=== PATIENT | male | born 1990 | race Caucasian/White ===

== ENCOUNTER 2019-08-23 11:16 | Emergency (ER) | payer MEDICARE, SELFPAY ==
[2019-08-23 11:28] VITALS: BP 158/113; PULSE 94; RESP 18; TEMP 36.7; O2SAT 96
== END 2019-08-23 11:35 ==
LOC: ER 11:43
PROVIDERS: Emergency Provider Physician Assistant
DX: Z53.21 Procedure and treatment not carried out due to patient leaving prior to being seen by health care provider (principal)

== ENCOUNTER 2020-03-18 12:25 | Emergency (ER) | payer MEDICARE, SELFPAY ==
[2020-03-18] VITALS (28 sets, daily range): BP systolic 165–192; BP diastolic 88–111; PULSE 90–166; RESP 15–34; TEMP 36.8; O2SAT 86–93
--- NOTE | 2020-03-18 13:00 | DI.RAD_ITS ---
EXAM: XR PORTABLE CHEST AP CLINICAL HISTORY: cough, chest pain, missed dialysis TECHNIQUE: 2D digital imaging was performed. COMPARISON: No exams were available for comparison FINDINGS: MEDIASTINUM: Normal. HEART: Within normal limits given the technique. PULMONARY VASCULATURE: Normal. LUNGS: Bilateral opacities are present. There are air bronchograms noted. PLEURAL SPACE: Blunting of the left costophrenic angle is seen suggesting small pleural effusion. No pneumothorax is present. BONE:Normal. OTHER FINDINGS:Normal. IMPRESSION: Bilateral airspace opacities with air bronchograms suspicious for pneumonia. DATA REPOSITORY: RADIATION DOSE DELIVERED:
--- NOTE | 2020-03-18 13:11 | W.ED.GENAD ---
Discharge Plan Disposition Patient Disposition: AGAINST MEDICAL ADVICE Condition: Serious Discharge Details Chief Complaint: GenMedical Clinical Impression: Multifocal pneumonia, Acute hyperkalemia, Left against medical advice Primary Care Provider: Cornelius Perez ED Provider: Isra Espinosa Home Meds and New Rx's Prescriptions: Continued acetaminophen 325 MG tablet 650 mg PO Q4H PRN PRNRF: 0 lisinopril 20 MG tablet 20 mg PO BID RF: 0 amlodipine 10 MG tablet 10 mg PO BID RF: 0 Renal Caps 1 CAP capsule 1 cap PO DAILY RF: 0 tacrolimus [Prograf] 1 MG capsule 1 mg PO BID RF: 0 calcium acetate(phosphat bind) [PhosLo] 667 MG capsule 667 mg PO TID RF: 0 minoxidil 10 mg Tablet 10 mg PO DAILY RF: 0 Discharge Instructions Instructions: Pneumonia (ED) Additional Instructions: As we discussed you have evidence of bilateral pneumonia as well as elevated life-threatening potassium. You have assume the risk of possible or permanent disability by leaving the hospital AGAINST MEDICAL ADVICE. Please return at any time for reevaluation. As noted, you underwent COVID-19 testing today which is pending at this time. Please continue to self quarantine. Medical Decision Making 30-year-old male with history of renal failure, last dialysis was on Friday, presents with day 4 of a cough with congestion, production of bloody sputum at times associated with generalized body ache. He arrives to the emergency department with elevated respiratory rate, borderline tachycardia of approximately 100, with room air oxygenation 85 to 86% that corrects with supplemental oxygen. This presentation is concerning for fluid overload, pneumonitis including Covid-19, & must exclude ACS. Chest x-ray reveals bibasilar airspace opacities, suggestive of pneumonia. Patient has a number of lab abnormalities including white blood cell count 2.7, hematocrit 25, platelets 284, sodium 122, potassium 6.9, BUN 88, creatinine 11.6, lactate 2.0. EKG did reveal peaked T waves. Patient was treated for hyperkalemia with insulin, glucose, calcium gluconate. COVID-19 nasopharyngeal testing was obtained. Blood cultures were ordered and the patient was given 1 g of ceftriaxone. Case [facility], Dr. Mayfield, and patient accepted in transfer. At approximately 3:30 PM the patient stated he wished to leave AGAINST MEDICAL ADVICE. He states he cannot handle being in the hospital and that he has arranged for dialysis to be performed this afternoon. He demonstrates decision-making capacity and is able to repeat back that he is at risk for or permanent disability from both hypoxia as well as hyperkalemia. He will be signed out AGAINST MEDICAL ADVICE. Lab Data Lab results reviewed: Yes I reviewed the patient's lab results. Labs: Laboratory Results - last 24 hr 03/18/20 03/18/20 03/18/20 13:22 13:22 13:22 WBC 2.71 L RBC 3.99 L Hgb 8.0 L Hct 25.6 L MCV 64.2 L MCH 20.1 L MCHC 31.3 L RDW 17.2 H Plt Count 284 MPV 9.5 Immature Gran % 0.0 Neutrophils % 61.0 Band Neutrophils % 27.0 Lymphocytes % 10.0 Monocytes % 1.0 Eosinophils % 1.0 Basophils % 0.0 Absolute Neutrophils 2.38 Absolute Lymphocytes 0.27 L Absolute Monocytes 0.03 L Absolute Eosinophils 0.03 Absolute Basophils 0.00 Differential Comment Manual differential RBC Morphology See below Polychromasia Present Hypochromasia 2+ Poikilocytosis 2+ Anisocytosis 2+ Microcytosis 2+ PT 12.5 H INR 1.2 H APTT 41.8 H Sodium 122 L* Potassium 6.9 H* Chloride 84 L Carbon Dioxide 28.2 Anion Gap 9.8 BUN 88 H* Creatinine 11.64 H* Estimated GFR/1.73 m2 5.10 Glucose 72 L Lactate Calcium 8.2 L Magnesium 2.1 Total Bilirubin 0.5 AST 46 H ALT 31 Alkaline Phosphatase 58 Troponin I < 0.05 Total Protein 7.3 Albumin 2.6 L 03/18/20 13:22 WBC RBC Hgb Hct MCV MCH MCHC RDW Plt Count MPV Immature Gran % Neutrophils % Band Neutrophils % Lymphocytes % Monocytes % Eosinophils % Basophils % Absolute Neutrophils Absolute Lymphocytes Absolute Monocytes Absolute Eosinophils Absolute Basophils Differential Comment RBC Morphology Polychromasia Hypochromasia Poikilocytosis Anisocytosis Microcytosis PT INR APTT Sodium Potassium Chloride Carbon Dioxide Anion Gap BUN Creatinine Estimated GFR/1.73 m2 Glucose Lactate 2.0 H Calcium Magnesium Total Bilirubin AST ALT Alkaline Phosphatase Troponin I Total Protein Albumin ECG Data Attestation: I personally reviewed and interpreted this ECG (s) as follows: Interpretation: Normal sinus rhythm with a rate of 88, the QRS is narrow, there are peaked T waves present. No ST segment elevation. QTc is 482 EKG #2 obtained at 1511 hrs. reveals a normal sinus rhythm with a rate of 99, the QRS is narrow, the peak T waves have improved and there is no ST segment elevation. HPI General Mode of arrival: ambulatory. Date/Time Provider Initiated Documentation: 03/18/20 12:27. Limitations to Documentation: no limitations. Information obtained by: patient. History of Present Illness 30 year old M presents to the emergency department with the chief complaint of 4 days cough, hemoptysis, shortness of breath, missed dialysis, described as moderate, Quality is described as dull, and is localized to the chest. Patient reports radiation to back. and it has been intermittent. No relieving factors improve symptom(s), No exacerbating factors reported . Patient notes cough and shortness of breath; denies syncope. Patient did receive the following treatments prior to arrival, none Related Data Home Medications Medication Instructions Recorded Confirmed Renal Caps 1 cap PO DAILY 09/13/16 03/18/20 acetaminophen 650 mg PO Q4H PRN PRN 09/13/16 03/18/20 amlodipine 10 mg PO BID 09/13/16 03/18/20 calcium acetate(phosphat bind) 667 mg PO TID 09/13/16 03/18/20 [PhosLo] lisinopril 20 mg PO BID 09/13/16 03/18/20 tacrolimus [Prograf] 1 mg PO BID 09/13/16 03/18/20 minoxidil 10 mg PO DAILY 03/18/20 03/18/20 Allergies Allergy/AdvReac Type Severity Reaction Status Date / Time No Known Allergies Allergy Unverified 03/18/20 13:03 General Stated Complaint: GenMedical RAUL: 2 Review of Systems Narrative: States he has a known murmur. States his last dialysis was on Friday. 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 No known sick contacts or travel and states that he has been home quarantining. 8 systems reviewed and otherwise negative [facility] Social History Smoking/Tobacco Use Status: Current every day Tobacco Type: cigarettes Alcohol Intake: never Substance use type: does not use Do you feel safe in your relationship?: Yes Exam Narrative Exam Narrative: GEN: awake, alert, oriented 3. Pleasant, well groomed, interactive. HEAD: Normocephalic, atraumatic ENT: Mucous membranes dry, External ear exam notes healing erosion to the inferior portion of the right earlobe EYES: PERRL, EOMI NECK: Full ROM, no EWA, no menigismus CHEST/RESP: Nontender, left & right rhonchi at bases CARDIOVASCULAR: RRR, harsh holosystolic murmur best at upper sternal border, no rub or Mayfield. 2+ Rad pulse bilateral ABDOMEN: Soft, nontender, no mass. +Bowel sounds EXT: Full ROM, trace pedal edema, no rash. Right upper extremity fistula with positive thrill Neuro: Grossly normal neurologic exam, conversant, interactive. Psych: Speech fluent, thoughts congruent, affect normal Course Vital Signs Vital signs: Vital Signs Temperature 36.8 C 03/18/20 12:52 Pulse 97 H 03/18/20 12:52 Respiratory Rate 25 H 03/18/20 12:52 Blood Pressure 165/94 H 03/18/20 12:52 Pulse Oximetry 86 L 03/18/20 12:52 Temperature 36.8 C 03/18/20 12:52 Temperature Source Temporal Artery Scan 03/18/20 12:52 Pulse 97 H 03/18/20 12:52 Respiratory Rate 22 03/18/20 13:04 Respiratory Effort 03/18/20 13:04 Respiratory Depth Shallow 03/18/20 13:04 Respiratory Pattern Tachypnea 03/18/20 13:04 Blood Pressure 165/94 H 03/18/20 12:52 Blood Pressure Position Supine 03/18/20 12:52 Pulse Oximetry 91 L 03/18/20 13:09 Oxygen Delivery Method Nasal Cannula 03/18/20 13:09 Oxygen Flow Rate 2.5 03/18/20 13:09 Pain Level 10 03/18/20 12:52 Comment 03/18/20 12:52
[2020-03-18 13:31] LABS: HCT 25.6 % (40.0-50.0); Mean Corp. HGB Concentration 31.3 g/dL (32.0-36.0); Mean Corpuscular Hemoglobin 20.1 pg (27.0-33.0); Mean Corpuscular Volume 64.2 fL (80-95); Mean Platelet Volume 9.5 fL (8.0-11.0); Platelet Count 284 x1000/uL (130-400); RBC 3.99 m/cumm (4.50-6.00); RBC Distribution Width 17.2 % (11.8-14.1); White Blood Cell Count 2.71 k/cumm (4.4-10.8)
[2020-03-18] MEDS: Normal Saline Flush 10 ML SYR IVP (13:46)
[2020-03-18 13:53] LABS: ALT 31 U/L (16-63); AST 46 U/L (15-37); Albumin 2.6 g/dL (3.4-5.0); Alkaline Phosphatase 58 U/L (46-116); Anion Gap 9.8 mmol/L (3-11); Bilirubin, Total 0.5 mg/dL (0.2-1.0); CO2 28.2 mmol/L (21.0-32.0); Calcium 8.2 mg/dL (8.5-10.1); Chloride 84 mmol/L (98-107); Glucose 72 mg/dL (74-106); Magnesium 2.1 mg/dL (1.8-2.4); Total Protein 7.3 g/dL (6.4-8.2)
[2020-03-18 13:55] LABS: BUN 88 mg/dL (7-18)
[2020-03-18 13:56] LABS: CREATININE 11.64 mg/dL (0.70-1.30)
[2020-03-18 13:57] LABS: Potassium 6.9 mmol/L (3.5-5.1); Sodium 122 mmol/L (136-145); Troponin I < 0.05 ng/Ml (<0.06)
[2020-03-18 13:59] LABS: PTT Activated 41.8 sec (21.0-31.4); Prothrombin Time 12.5 sec (9.3-11.0)
[2020-03-18 14:00] LABS: INR 1.2 (0.9-1.1)
[2020-03-18 14:09] LABS: Absolute Eosinophil Count 0.03 k/cumm (0.0-0.7); Absolute Lymphocyte Count 0.27 k/cumm (1.2-3.4); Absolute Monocyte Count 0.03 k/cumm (0.11-0.7); Absolute Neutrophil Count 2.38 k/cumm (1.2-6.7)
[2020-03-18] MEDS: Insulin REGULAR-Human 100 UNITS/ML UNIT 10 UNITS SC (14:10)
[2020-03-18] MEDS: Dextrose 50%-Water 25 GM/50 ML SYR IVP (14:10)
[2020-03-18 14:11] LABS: Anisocytosis 2+; Hypochromasia 2+; Microcytosis 2+; Polychromasia Present
[2020-03-18 14:12] LABS: Diff Comment Manual Differential; Poikilocytes 2+
[2020-03-18] MEDS: Calcium Gluconate 4.65 MEQ/10 ML VIAL 4.65 MG IVP (14:19)
--- NOTE | 2020-03-18 14:26 | DI.VRAD_ITS ---
PROCEDURE INFORMATION: Exam: XR Chest, 1 View Exam date and time: 03/18/2020 1:49 PM Age: 30 years old Clinical indication: Other: Cough, chest pain, missed dialysis TECHNIQUE: Imaging protocol: XR of the chest Views: 1 view. COMPARISON: No relevant prior studies available. FINDINGS: Lungs: There are airspace opacities at the lung bases, suggesting pneumonia. Pleural space: A small left pleural effusion is present. The right costophrenic angle is sharp. No pneumothorax is identified. Heart/Mediastinum: Unremarkable. No cardiomegaly. Bones/joints: Unremarkable. IMPRESSION: Bibasilar airspace opacities suggesting pneumonia, with a small left pleural effusion. Dictated and Authenticated by: Tomy Cuellar MD. Ordering:TAYLOR Dhaliwal MD
[2020-03-18] MEDS: cefTRIAXone 1 GM/50 ML BAG IVPB (15:10)
--- NOTE | 2020-03-18 15:25 | NUR.NOTE ---
to the pts car to get his phone , with an additional staff member. i rolled up the window and locked it . returned the keys to the pt Nursing Note:
--- NOTE | 2020-03-19 06:31 | NUR.NOTE ---
Called patient phone in regards to lab results unable to leave message. Called patients mother in left message for patient to give the ER a call. Nursing Note:
--- NOTE | 2020-03-19 10:30 | W.ED.FU ---
Patient returned message left for him this am to call the ED regarding his positive blood cultures. He was advised that it was recommended to come to the emergency department for evaluation and admission for IV antibiotics. He was notified that he would likely require transfer to [facility] due to his history of dialysis. He stated that he has extreme anxiety when he comes to the ER and is unsure if he will be coming in and he will likely leave once he gets here. Pt left AMA from the ED yesterday as he did not want transfer to [facility]. He was advised and demonstrated capacity to understand the risks of and disability due to bacteremia.
[2020-03-19 10:33] LABS: COVID-19 RT-PCR UVMMC Result Negative (Negative)
--- NOTE | 2020-03-19 10:53 | NUR.NOTE ---
Addendum entered by Humera Harkins 03/27/20 08:29: 03/27/2020 Blood culture final result faxed to [facility]. . Humera Harkins. Addendum entered by Humera Harkins 03/19/20 14:40: [id number] [facility] called requesting the COVID result and patient information from the ED visit from yesterday. It was faxed, nursing customer services supervisor Daphne Lobo is aware. Humera Harkins [facility] attn: Loli [phone] Original Note: Nursing Note: Patient called asking if he could drive directly to [facility] without coming to [facility] and then an ambulance ride there. Spoke with Dr. Barrios and if that is what the patient wishes to do it is his decision. Patient is aware that he can come to [facility] for immediate care and then transfer. Humera Harkins.
--- NOTE | 2020-03-20 09:17 | W.ED.FU ---
Follow Up Plan: Contacted by lab that blood cultures 03/18/2020 are positive for strep pneumo. Contacted [facility], and confirmed that patient is admitted there to the ICU. Lab was contacted with fax number and will fax results to them.
--- NOTE | 2020-03-21 11:58 | ED.FU.B_ITS ---
Follow-up culture results show strep pneumo that is sensitive to penicillin G. Will notify [facility].
--- NOTE | 2020-03-21 11:58 | W.ED.FU ---
Follow-up culture results show strep pneumo that is sensitive to penicillin G. Will notify [facility].
== END 2020-03-18 15:46 | disposition left against medical advice (07) ==
PROVIDERS: Emergency Provider Emergency Medicine; PCP Family Medicine
DX: E87.5 Hyperkalemia (principal); J18.9 Pneumonia, unspecified organism; R09.02 Hypoxemia; N18.6 End stage renal disease; Z99.2 Dependence on renal dialysis; B95.3 Streptococcus pneumoniae as the cause of diseases classified elsewhere; Z53.29 Procedure and treatment not carried out because of patient's decision for other reasons; Z94.0 Kidney transplant status
CPT/HCPCS: 36415; 36416; 80053; 82962; 87040; 87077; 93005; 96365; 96372; 96375; 99285; U0003; 71045; 83605; 83735; 84484; 85025; 85610; 85730; 87186; 93010; J0610; J0696

== ENCOUNTER 2020-07-02 20:28 | Emergency (ER) | payer MEDICARE, SELFPAY ==
[2020-07-02 20:34] VITALS: BP 198/114; PULSE 99; RESP 18; TEMP 36.8; O2SAT 95
[2020-07-02 20:41] VITALS: RESP 16
[2020-07-02 20:47] VITALS: BP 200/109; PULSE 99; RESP 16; O2SAT 95
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
[2020-07-02 20:52] VITALS: BP 187/99; PULSE 99; RESP 16; O2SAT 93
== END 2020-07-02 21:05 | disposition home or self-care (01) ==
LOC: ER 21:08
PROVIDERS: Emergency Provider Physician Assistant; PCP Family Medicine
DX: I12.0 Hypertensive chronic kidney disease with stage 5 chronic kidney disease or end stage renal disease (principal); N18.6 End stage renal disease; Z99.2 Dependence on renal dialysis; V49.3XXA Car occupant (driver) (passenger) injured in unspecified nontraffic accident, initial encounter
CPT/HCPCS: 99285; 99283

== ENCOUNTER 2020-07-03 07:17 | Emergency (ER) | payer MEDICARE, SELFPAY ==
[2020-07-03 07:18] VITALS: O2SAT 17
[2020-07-03 07:21] VITALS: BP 71/41; PULSE 88
[2020-07-03 07:22] VITALS: PULSE 124; RESP 16
[2020-07-03] MEDS: EPINEPHrine 1 MG/10 ML SYR IVP (07:27)
--- NOTE | 2020-07-03 07:34 | W.ED.GENAD ---
Discharge Plan Disposition Patient Disposition: Discharge Details Chief Complaint: SOB Clinical Impression: Cardiac arrest Primary Care Provider: Cornelius Perez ED Provider: Tomy Mao Home Meds and New Rx's Prescriptions: No Action acetaminophen 325 MG tablet 650 mg PO Q4H PRN PRNRF: 0 lisinopril 20 MG tablet 20 mg PO BID RF: 0 amlodipine 10 MG tablet 10 mg PO BID RF: 0 Renal Caps 1 CAP capsule 1 cap PO DAILY RF: 0 tacrolimus [Prograf] 1 MG capsule 1 mg PO BID RF: 0 calcium acetate(phosphat bind) [PhosLo] 667 MG capsule 667 mg PO TID RF: 0 minoxidil 10 mg Tablet 10 mg PO DAILY RF: 0 Medical Decision Making 30 yo male with hx of esrd on dialysis MWF and apparently did have dialysis friday from ED note last night comes in with ems with respiratory distress. Was seen last night for clearance to go to the correctional facility. He was d/c'd after had normal exam and no complaints. Apparently he was d/c'd from correctional center this AM without complaints and an hour later was found on the groud outside the correctional facility tachypneic and obtunded. On arrival with ems is on cpap, not responding to painful or verbal stimuli, pupils are dilated and has rhonchi throughout on exam. Given clinical picture feel he required intubation, no access obtained by EMS nursing will attempt IV and ems to place IO While access being prepped pt went into cardiac arrest. Immediate acls was initiated and inital rhythm after pads were placed showed asystole, did have sinus tachycardia with ems. He had 2 minutes of cpr and after another pulse check was in asystole and given 1mg epi. After a ttoal of 10 minutes of cpr he had no end tidal co2 and no cardiac activity on bedside u/s with asystole so he was pronounced at 0730. Given unclear etiology of his given he was reportedly fine at d/c from correctional facility feel this should be an ME case. Differential Diagnosis Differential Diagnosis: drug overdose, hypercapenia, pulmonary edema HPI General Mode of arrival: EMS. Date/Time Provider Initiated Documentation: 07/03/20 07:21. Limitations to Documentation: no limitations. Information obtained by: patient. History of Present Illness 30 year old M presents to the emergency department with the chief complaint of dyspnea, described as moderate, and it has been constant. No relieving factors improve symptom(s), No exacerbating factors reported . Patient did receive the following treatments prior to arrival, none Related Data Home Medications Medication Instructions Recorded Confirmed Renal Caps 1 cap PO DAILY 09/13/16 03/18/20 acetaminophen 650 mg PO Q4H PRN PRN 09/13/16 03/18/20 amlodipine 10 mg PO BID 09/13/16 03/18/20 calcium acetate(phosphat bind) 667 mg PO TID 09/13/16 03/18/20 [PhosLo] lisinopril 20 mg PO BID 09/13/16 03/18/20 tacrolimus [Prograf] 1 mg PO BID 09/13/16 03/18/20 minoxidil 10 mg PO DAILY 03/18/20 03/18/20 Allergies Allergy/AdvReac Type Severity Reaction Status Date / Time No Known Allergies Allergy Unverified 07/02/20 20:36 General RAUL: 4 Review of Systems Unobtainable due to mental status [facility] Social History Smoking/Tobacco Use Status: Current every day Tobacco Type: cigarettes Alcohol Intake: never Substance use type: marijuana Details: Police report Heroin user Do you feel safe at home: Yes Do you feel safe in your relationship?: Yes Exam Const General: ill appearing Orientation: alert HENMT Head: normal to inspection Ears: external ears normal General nose exam: external nose normal Mouth: moist mucous membranes Eyes General: appearance normal, both eyes and all related structures Neck Neck: normal visual inspection Resp Effort & Inspection: decreased respiratory effort Cardio Rate: regular rate Skin General skin exam: no rashes or lesions noted Neuro General: patient obtunded Extrem General: normal to inspection
[2020-07-03 07:35] VITALS: BP 70/41; PULSE 124; TEMP 36.2
--- NOTE | 2020-07-03 08:24 | NUR.NOTE ---
Addendum entered by Kathe Vazquez 07/03/20 08:58: access patient chart second time to see if any tests were done for ME. [facility] [place] ED Original Note: access patient chart for medical technologist hematology Tomy Nicholas printed patients physicians note from today and yesterday [facility] [place] ED Nursing Note:
[2020-07-03 19:56] LABS: COVID-19 RT-PCR UVMMC Result Negative (Negative)
== END 2020-07-03 09:53 | disposition expired ==
PROVIDERS: Physician Assistant; Emergency Provider Emergency Medicine; PCP Family Medicine
DX: I46.9 Cardiac arrest, cause unspecified (principal); Z11.59 Encounter for screening for other viral diseases; I12.0 Hypertensive chronic kidney disease with stage 5 chronic kidney disease or end stage renal disease; N18.6 End stage renal disease; Z99.2 Dependence on renal dialysis
CPT/HCPCS: 36680; 92950; 96374; 99284; U0003; 99283